=== PATIENT | male | born 1950 | race Caucasian/White ===

== ENCOUNTER 2020-04-06 16:29 | Outpatient (RCR) | payer MEDICARE, SELFPAY | END 2020-04-06 23:59 | LOC: IMMUN 16:29 | PROVIDERS: PCP Family Medicine; Visit Provider Family Medicine | DX: Z23 Encounter for immunization (principal) | CPT/HCPCS: 0011A; 0012A ==

== ENCOUNTER → 2020-12-07 15:35 | Outpatient (CLI) | payer MEDICARE, SELFPAY ==
--- NOTE | 2020-12-07 15:38 | CT_ITS ---
STUDY: CT RIGHT LOWER EXTREMITY WITHOUT CONTRAST REASON FOR EXAM: Right knee osteoarthritis, preoperative planning. TECHNIQUE: Transaxial CT imaging of the lower extremity was performed. Coronal and sagittal images were reformatted. Individualized dose optimization techniques were used for this CT. COMPARISON: None. FINDINGS: Knee: There are marginal osteophytes, subchondral eburnation and severe joint space narrowing of the medial femorotibial compartment (coronal reconstruction 30). There are marginal osteophytes with preservation of joint space of the lateral femorotibial compartment. There are marginal osteophytes and joint space narrowing of the lateral aspect of the patellofemoral compartment (axial image 274). Normal proximal tibiofibular articulation. There is a small joint effusion. The quadriceps tendon is grossly normal. The patellar tendon is grossly normal. Normal Hoffa''s fat pad. There is a ganglion cyst adjacent to the origin of the medial gastrocnemius (axial image 225). There is mild vascular calcification. Hip: There is mild joint space narrowing of the posterior aspect of the right hip joint (axial image 25) and subchondral cystic change of the lateral acetabulum. There is a herniation pit in the lateral aspect of the femoral neck (coronal reconstruction 41). Ankle: Normal tibiotalar, posterior subtalar, talonavicular and calcaneocuboid articulations. There is a plantar calcaneal enthesophyte. CT/Extremity Lower without Contra IMPRESSION: Right knee osteoarthritis. Electronically Signed: Jose Enrique Alexander MD at 14:52 EDT Tel , Service support ,
== END ==
PROVIDERS: PCP Family Medicine; Referring Provider Physician Assistant; Visit Provider Physician Assistant
DX: M17.11 Unilateral primary osteoarthritis, right knee (principal)
CPT/HCPCS: 73700

== ENCOUNTER → 2020-12-23 13:09 | Outpatient (CLI) | payer MEDICARE, SELFPAY ==
--- NOTE | 2020-12-23 14:04 | EKG12_ITS ---
Test Reason : PRE OP Blood Pressure : / mmHG Vent. Rate : 086 BPM Atrial Rate : 086 BPM P-R Int : 170 ms QRS Dur : 078 ms QT Int : 342 ms P-R-T Axes : 083 069 081 degrees QTc Int : 409 ms Normal sinus rhythm Normal ECG Confirmed by RESHMA CAICEDO, NICK ([id number]), movie editor HUSSAIN MADERA ([id number]) on 12/24/2020 9:25:25 AM Referred By: Winston Boswell Confirmed By:NICK JUSTICE MD
[2020-12-23 14:49] LABS: Hematocrit 49.1 % (40-54); Mean Corp Hgb Conc 32.6 g/dL (32-36); Mean Corpuscular Hgb 30.5 pg (27.0-32.0); Mean Corpuscular Volume 93.7 fL (80-94); Mean Platelet Vol. 9.3 fl (6.2-12.0); Platelet Count 270 K/mm3 (150-450); RBC Distribution Width CV 12.7 % (11.6-14.6); RBC Distribution Width SD 43.9 fl (35.1-43.9); Red Blood Count 5.24 M/mm3 (4.6-6.2); White Blood Count 7.2 K/mm3 (4.4-11.0)
[2020-12-23 15:21] LABS: Anion Gap 4 (5-15); BUN 12 mg/dL (7-18); BUN/Creat Ratio 12.7 RATIO (10-20); Calcium,Total 9.4 mg/dL (8.5-10.1); Chloride 108 mmol/L (98-107); Creatinine, Serum 0.95 mg/dL (0.70-1.30); EST Glomerular Filtration Rate 83 mL/min (>60); Est Glom Filt Rate - Afr Amer 101 mL/min (>60); Glucose 101 mg/dL (74-106); Potassium 3.9 mmol/L (3.5-5.1); Sodium Level 140 mmol/L (136-145)
[2020-12-23 15:37] LABS: Hemoglobin A1c 5.5 % (3.8-5.6)
== END ==
PROVIDERS: PCP Family Medicine; Referring Provider Physician Assistant; Visit Provider Physician Assistant
DX: Z01.818 Encounter for other preprocedural examination (principal); Z01.810 Encounter for preprocedural cardiovascular examination
CPT/HCPCS: 36415; 80048; 83036; 85027; 93005

== ENCOUNTER → 2021-01-06 | Outpatient (CLI) | payer MEDICARE, SELFPAY ==
--- NOTE | 2021-01-06 | KNEE_PTH ---
PATIENT: RIZWAN SANABRIA [facility] U[facility][id number] AGE/SX: 70/M ROOM: RE01/06/[address]: Dr. Jono Lemon DO : 1950 BED: DIS: 01/06/2021 SPEC #: [id number] RECD: 01/07/21 08:57 STATUS: MICHELA REQ #: [id number] SARINA: 01/06/21 00:[address]: Jono Lemon DEPT: SURGICAL PATHOLOGY RECD BY: Dinh Mccracken ENTERED: 01/07/21 08:58 SP TYPE: TOTAL KNEE OTHR DR: Dr. Zane Blanc III, MD [facility] Tissues: Knee, NOS Procedures: Decalcification bone/plaque Surgery Specimen Level IV HEADER OPERATION: Robotic assisted right total knee arthroplasty PRE-OP DIAGNOSIS: Osteoarthritis of knee TISSUE SUBMITTED: Bone and soft tissue right knee MICROSCOPIC DIAGNOSIS Bone and tissue of right knee, total knee resection: Severe degenerative joint disease. Mild synovial hyperplasia. AM:amisha 01/11/2021 MICROSCOPIC DESCRIPTION Slides are reviewed. GROSS DESCRIPTION Received is one container designated bone and soft tissue right knee. The specimen consists of multiple fragments of morales-yellow bone measuring in aggregate 12 x 10 x 4 cm. Also in the specimen container are multiple fragments of yellow-white soft tissue measuring in aggregate 11 x 7 x 3.5 cm. A number of bony fragments contain articular surfaces consistent with tibial plateau and femoral condyle and displaying prominent osteophyte formation, eburnation, and bone erosion. Meat Supervisor sections are submitted in two cassettes as follows: 1 - soft tissue, 2 - bone after decalcification. / SJ:amisha 01/07/21 TC:5 [facility]: [id number], [id number]
== END | disposition home or self-care (01) ==
PROVIDERS: PCP Family Medicine; Referring Provider Orthopaedic Surgery; Visit Provider Orthopaedic Surgery
DX: M17.11 Unilateral primary osteoarthritis, right knee (principal)
CPT/HCPCS: 88305; 88311

== ENCOUNTER 2021-01-07 21:26 | Emergency (ER) | payer MEDICARE, SELFPAY ==
[2021-01-07 21:28] VITALS: BP 142/95; PULSE 106; RESP 18; TEMP 36.4; O2SAT 94; BMI 29.2
[2021-01-07 22:04] LABS: Bacteria 0 SEEN /hpf (None Seen); Mucous, Urine 0 SEEN /hpf (<or=2+); Squamous Epithelial Cells - UA 0 SEEN /hpf (0-5)
--- NOTE | 2021-01-07 22:05 | EDS_ITS ---
HPI History of Present Illness Chief Complaint: Complaint Detail of Chief Complaint: Unable to urinate Informant: patient and spouse/S.O. Pain Onset: Today Timing: Continuous Current Severity: Mild Maximum Severity: Mild Narrative Narrative: 70-year-old male had a recent right knee surgery done with orthopedics yesterday. Had to be straight cathed after the surgery. He has a history of enlarged prostate and has seen urology in the past. Today's only had very minimal amount of urine. Denies any other symptoms. He has never had any urologic surgeries. Prior similar symptoms: Yes Recent Illness/Hospitalization: No PFSH PFSH Home Medications tamsulosin [Flomax] 0.4 mg PO DAILY #30 cap 01/07/21 [Rx Last Taken Unknown] Allergy/AdvReac Type Severity Reaction Status Date / Time No Known Allergies Allergy Verified 01/07/21 21:27 Surgical History Status post right knee replacement Social History Smoking Status: Current every day smoker tobacco type: cigarettes ROS ROS ED ROS Narrative Urinary retention. Review of Systems ROS Unobtainable: Denies due to encephalopathy Constitutional Constitutional ED: Denies fever(s) Eyes Eyes: Denies change in vision ENT ENT ED: Denies ear pain Cardiovascular Cardiovascular: Denies chest pain Respiratory/Chest Respiratory/Chest: Denies dyspnea Gastrointestinal Gastrointestinal: Denies abdominal pain Genitourinary Genitourinary ED: Reports urinary frequency; Denies dysuria or hematuria Musculoskeletal Musculoskeletal: Denies myalgias Integumentary Denies rash Neurologic Neurologic: Denies headache(s) Psychiatric Psychiatric: Denies depression Endocrine Endocrinology: Denies polyuria Hematologic/Lymphatic Hematologic/Lymphatic: Denies easy bruising Allergic/Immunologic Allergic/Immunologic ED: Denies urticaria EXAM Physical Exam Narrative Exam Narrative: 70-year-old male no acute distress vital signs stable afebrile. HEENT exam unremarkable. Neck nontender. Lungs clear to auscultation. Heart regular rhythm no murmur. Abdomen soft nondistended normal bowel sounds no peritoneal signs. Bladder feels distended and full. External exam unremarkable circumcised male. Moving all 4 extremities. Status post right knee replacement. Neurologically is awake and alert with no focal motor deficits. Const Vital Signs: 01/07/21 21:28 Temperature 97.6 F L Temperature Source Temporal Pulse Rate 106 H Respiratory Rate 18 Blood Pressure 142/95 H Blood Pressure Mean 110 Pulse Ox 94 Oxygen Delivery Method Room Air Positive well nourished and well developed; Negative for obese, cachectic, contractures or unkempt General Appearance ED: well developed and NAD; Negative for unkempt, cachectic, contractures or pallor Nutritional Appearance: Negative for cachectic or obese HEENT Reports moist mucous membranes normocephalic and atraumatic Eyes PERRL and EOMs intact bilaterally Neck no lymphadenopathy, supple and no JVD General: Negative for tenderness Resp normal respiratory effort and clear to auscultation bilaterally Auscultation: Negative for rales, rhonchi or wheezes Cardio regular rate, regular rhythm, S1 normal heart sound, S2 normal heart sound and no murmurs GI non-tender; Negative for non-distended GI Narrative: Distended bladder. Auscultation: normoactive bowel sounds Palpation: soft Penis: normal penis and circumcised Extremity normal to inspection Extremity Narrative: Status post right knee replacement. Neuro oriented x3 Sensorium / Orientation: alert, oriented to person, oriented to place and oriented to time Psych mental status grossly normal Appearance: Negative for unkempt Mood & Affect: Negative for depressed or tearful Skin General Skin Exam: Negative for jaundice or pallor Lesions: no lesions Rashes: no rashes MDM MDM MDM Narrative Medical decision making narrative: Gentleman postop urinary retention with a h istory of BPH. Gupta catheter was placed and is put out 1100 cc of clear yellow urine. No blood. He will be discharged to home with the Gupta in place. Urinalysis will be sent. He will follow up with urology and be started on Flomax. Discharge Plan Triage Chief Complaint: Complaint ED Provider: Amanuel Perez Dx/Rx/DC Orders Clinical Impression: Acute urinary retention, Benign prostatic hyperplasia Instructions: ED BPH (Enlarged Prostate), ED Urinary Retention, Male Prescriptions: New tamsulosin [Flomax] 0.4 mg capsule 0.4 mg PO DAILY Qty: 30 RF: 0 Primary Care Provider: Len Roca Referrals: Chaparro Hua MD [STAFF PHYSICIAN] - As soon as possible Len Roca PA [Primary Care Provider] - Activity Restrictions/Additional Instructions: Follow-up with the urologist as Empty the Gupta catheter whenever half for more. Start the Flomax. Disposition Disposition: Home, Self Care
[2021-01-07 22:37] LABS: Color, Urine Yellow (Yellow); Glucose, Dipstick Normal (Normal); Ketone-Dipstick Negative (Negative); Leukocyte Esterase-Dipstick 25 /ul (Negative); Nitrite-Dipstick Negative (Negative); Occult Blood-Urine 250 /ul (Negative); Protein-Dipstick Negative (Negative); Urine Bilirubin Dipstick Negative (Negative); Urine Clarity Clear (Clear); Urine Urobilinogen Normal (Normal)
[2021-01-07 22:49] LABS: Red Blood Cells-Urine 0-5 SEEN /hpf (0-5); White Blood Cells 0-5 SEEN /hpf (0-5)
== END 2021-01-07 22:27 | disposition home or self-care (01) ==
PROVIDERS: Emergency Provider Emergency Medicine; PCP Physician Assistant
DX: N40.1 Benign prostatic hyperplasia with lower urinary tract symptoms (principal); R33.8 Other retention of urine; Z79.899 Other long term (current) drug therapy; F17.210 Nicotine dependence, cigarettes, uncomplicated; Z96.651 Presence of right artificial knee joint
CPT/HCPCS: 51702; 81001; 99283

== ENCOUNTER 2021-02-04 07:54 | Day surgery (SDC) | payer MEDICARE, SELFPAY ==
[2021-02-04] VITALS (7 sets, daily range): BP systolic 109–130; BP diastolic 69–94; PULSE 82–95; RESP 16–20; TEMP 36.1–37.2; O2SAT 93–97; BMI 26.0
[2021-02-04] MEDS: Lactated Ringers 1,000 ML 100 ML IV (08:35)
--- NOTE | 2021-02-04 09:39 | PCM.HP.STD ---
HPI - General HPI Narrative RIZWAN SANABRIA, is a 70 M who presents for a TURP has develop retention of urine. PFSH Medical History Alcohol use COPD (chronic obstructive pulmonary disease) Indwelling urethral catheter present Prostate disease Smoker Wears contact lenses Wears hearing aid Home Medications tamsulosin [Flomax] 0.4 mg PO DAILY #30 cap 01/07/21 [Rx Last Taken Unknown] acetaminophen 1,000 mg PO TID PRN PRN 02/04/21 [History Last Taken Unknown] ciprofloxacin HCl [Cipro] 500 mg PO BID #14 tab 02/04/21 [Rx Last Taken Unknown] multivitamin 1 tab PO DAILY 02/04/21 [History Last Taken Unknown] tamsulosin [Flomax] 0.4 mg PO DAILY #10 cap 02/04/21 [Rx Last Taken Unknown] Allergy/AdvReac Type Severity Reaction Status Date / Time No Known Allergies Allergy Verified 01/07/21 21:27 Surgical History Status post right knee replacement Social History Smoking Status: Current every day smoker tobacco type: cigarettes Vital Signs Vital Signs Vital Signs: 02/04/21 08:23 Temperature 99.0 F Temperature Source Temporal Pulse Rate 87 Respiratory Rate 16 Respiratory Pattern Normal Blood Pressure 127/94 H Blood Pressure Mean 105 Blood Pressure Source Monitor Blood Pressure Position Sitting Blood Pressure Location Left Arm Pulse Ox 97 Oxygen Delivery Method Room Air Weight Weight: 80 kg Body Mass Index (BMI) 26.0
--- NOTE | 2021-02-04 09:40 | DCINST_ITS ---
Discharge Instructions Diet Discharge Diet: Light diet - advance as tolerated Activity Discharge Activity: Return to Normal Activity and May Not Drive (while taking narcotic pain medications.) Dressing / Incision Call your doctor if you observe: Fever of 101 or Higher Catheter: Gupta to leg bag and Gupta to large bag Drain: [place] Follow Up Care Please Follow Up With: Chaparro Hua MD When: Call [phone] for an appointment Test Results: Test results from this visit will be discussed in further detail at your follow-up appointment, if applicable. Discharge Plan Admission Primary Reason for Your Visit: TURP Attending Provider: Chaparro Hua Primary Care Provider: Len Roca Instructions Patient Instructions: TURP Home Recovery Discharge Orders/Prescriptions Prescriptions: New ciprofloxacin HCl [Cipro] 500 mg tablet 500 mg PO BID Qty: 14 RF: 0 tamsulosin [Flomax] 0.4 mg capsule 0.4 mg PO DAILY Qty: 10 RF: 0 Continued tamsulosin [Flomax] 0.4 mg capsule 0.4 mg PO DAILY Qty: 30 RF: 0 acetaminophen 500 mg Tablet 1,000 mg PO TID PRN PRN (Reason: Pain) RF: 0 multivitamin Tablet 1 tab PO DAILY RF: 0 Referrals / Follow Up: Chaparro Hua MD [STAFF PHYSICIAN] - Len Roca PA [Primary Care Provider] - Disposition Disposition (needs filled in before D/C Order can be placed): Home, Self Care
--- NOTE | 2021-02-04 10:05 | PROS_PTH ---
PATIENT: RIZWAN SANABRIA [place] [facility] [place][id number] AGE/SX: 70/M ROOM: RE02/04/[address]: Dr. Chaparro Hua MD : 1950 BED: DIS: 02/04/2021 SPEC #: [id number] RECD: 02/08/21 09:30 STATUS: MICHELA REChung #: [id number] SARINA: 02/04/21 10:[address]: Chaparro Hua DEPT: SURGICAL PATHOLOGY RECD BY: Lyly Bennett ENTERED: 02/08/21 09:30 SP TYPE: TURP OTHR DR: AMARILIS Og Tissues: Prostate, NOS Procedures: Surgery Specimen Level IV HEADER OPERATION: Cysto, TUR prostate, Olympus PRE-OP DIAGNOSIS: BPH with outlet obstruction TISSUE SUBMITTED: Prostate tissue MICROSCOPIC DIAGNOSIS Prostate tissue, TUR: Benign prostatic hyperplasia, glandular and stromal type. Chronic inflammation. SJ:amisha 02/09/2021 MICROSCOPIC DESCRIPTION Slides are reviewed. GROSS DESCRIPTION Received is one container labeled with the patient's name and designated prostate tissue. The specimen consists of multiple irregular fragments of pink-morales, rubbery, soft tissue that in aggregate weigh 20.7 gm and measure in aggregate 7 x 7 x 3 cm. Engraver Hand Soft Metals tissue is submitted in ten cassettes. / SJ:amisha 02/08/21 TC:5 CPT: 57574
--- NOTE | 2021-02-04 11:16 | PCM.OPRPT ---
Report of Operation Date of Procedure: 02/04/21 Pre-Operative Diagnosis: bph Post-Operative Diagnosis: same Surgery/Procedure Performed:: turp Description of Surgical Findings:: In the preoperative setting I discussed with the patient how the surgery would be done with expect afterwards. We discussed how a prostate resection is done and we discussed the risk of the surgery including, bleeding, infection, retrograde ejaculation, changes with ejaculation or intercourse,. We discussed the possibility that the resection of the prostate may not alleviate his urinary symptoms. We discussed the small risk of developing scar tissue along the urethral channel and strictures. We also discussed the chance of the prostate could grow back and he may need further surgery or treatment in the future for prostate problems. Patient was taken back to the operating room, timeout procedure was performed, he was identified and marked and placed on the operating room table. He underwent general anesthesia. He was placed in dorsolithotomy position. Penis and testicles were prepped and draped in usual sterile fashion. Went into the bladder using the visual obturator with a resectoscope. Once inside the bladder identified the right and left ureteral orifice. I then identified the prostate and the anatomy of the prostate. I marked out the area of the sphincter and the verumontanum was identified. I then proceeded with the prostate resection first resected the median lobe. And then resected the right lobe of the prostate. Then to resect the left lobe of the prostate. I then resected the apical tissue of the prostate. This was a complete resection of all obstructive tissue to improve voiding and relieve obstruction. I then made sure that there was no injury to the sphincter or the verumontanum was still intact. At the end of the resection all the chips were Ellik out of the bladder. I then identified the left and right ureteral orifice and these were confirmed to be in good position and effluxing and not injured. The resectoscope was removed, a 22 [place] catheter was placed. And the urine was fairly light pink color and draining normally. He was taken back to the PACU in good condition. Surgeon: graciela Type of Anesthesia: General Drains: 20 fr aguirre Admit VTE Documentation VTE Present on Admission: No VTE Mechan Device Prophylaxis: SCD's VTE Pharm Prophylaxis ordered?: No
== END 2021-02-04 13:16 | disposition home or self-care (01) ==
LOC: SDC 07:58 → AC 08:00
PROVIDERS: PCP Physician Assistant; Referring Provider Urology; Visit Provider Urology
PROC: (CPT 52601; principal; 2021-02-04 09:55)
DX: N40.1 Benign prostatic hyperplasia with lower urinary tract symptoms (principal); R33.8 Other retention of urine; J44.9 Chronic obstructive pulmonary disease, unspecified; Z79.899 Other long term (current) drug therapy; F17.210 Nicotine dependence, cigarettes, uncomplicated
CPT/HCPCS: 52601; 88305; J7120

== ENCOUNTER 2024-04-25 08:19 | Emergency (ER) | payer MEDICARE, SELFPAY ==
[2024-04-25] VITALS (17 sets, daily range): BP systolic 113–225; BP diastolic 78–152; PULSE 78–110; RESP 14–144; TEMP 36.1–36.3; O2SAT 90–100; BMI 33.7
--- NOTE | 2024-04-25 08:19 | ED.RN ---
per dr. villatoro do NOT call [facility] at this time.
[2024-04-25] MEDS: Etomidate 20 MG/10 ML Vial IV (08:23)
[2024-04-25] MEDS: Succinylcholine Chloride 200 MG/10 ML SYRINGE 100 MG IV (08:24)
--- NOTE | 2024-04-25 08:27 | CT_ITS ---
EXAM: CT Cervical Spine Without Intravenous Contrast CLINICAL INDICATION: FALL ?NECK TRAUMA TECHNIQUE: Axial computed tomography images of the cervical spine without intravenous contrast. This CT exam was performed using one or more of the following dose reduction techniques: automated exposure control, adjustment of the mA and/or kV according to patient size, and/or use of iterative reconstruction technique. COMPARISON: No relevant prior studies available. FINDINGS: ARTIFACTS: Suboptimal exam secondary to significant motion artifacts. No gross fracture. VERTEBRAE: See above. DISCS/SPINAL CANAL/NEURAL FORAMINA: No acute findings. No significant spinal canal stenosis. SOFT TISSUES: Unremarkable. CT/Spine Cervical without Contras IMPRESSION: Suboptimal exam secondary to significant motion artifacts. No gross fracture. Reading Location: [facility]
--- NOTE | 2024-04-25 08:27 | CT_ITS ---
EXAM: CT Head Without Intravenous Contrast CLINICAL INDICATION: AMS, CODE STROKE, RIGHT SIDED WEAKNESS TECHNIQUE: Axial computed tomography images of the head/brain without intravenous contrast. This CT exam was performed using one or more of the following dose reduction techniques: automated exposure control, adjustment of the mA and/or kV according to patient size, and/or use of iterative reconstruction technique. COMPARISON: No relevant prior studies available. FINDINGS: ARTIFACTS: Suboptimal exam secondary to motion artifacts. BRAIN AND EXTRA-AXIAL SPACES: Acute intracranial hemorrhage extending from the left thalamus to the midbrain and devin. No obvious hydrocephalus or herniation. However, evaluation is limited by motion artifact. BONES/JOINTS: Unremarkable. No acute fracture. SOFT TISSUES: Unremarkable. SINUSES: Unremarkable as visualized. No acute sinusitis. MASTOID AIR CELLS: Unremarkable as visualized. No mastoid effusion. CT/STROKE Brain/Head without Cont IMPRESSION: 1. Acute intracranial hemorrhage extending from the left thalamus to the midbr ain and devin. 2. Suboptimal exam secondary to motion artifacts. Findings were discussed with Dr. Klein by phone on 04/25/2024 at 0910 hours. Reading [facility]
--- NOTE | 2024-04-25 08:29 | EKG12_ITS ---
Test Reason : UNRESPONSIVE Blood Pressure : */* mmHG Vent. Rate : 104 BPM Atrial Rate : 104 BPM P-R Int : 178 ms QRS Dur : 92 ms QT Int : 312 ms P-R-T Axes : 70 62 50 degrees QTcB Int : 410 ms Poor data quality, interpretation may be adversely affected Sinus tachycardia Nonspecific ST abnormality Abnormal ECG Confirmed by JASWANT CAICEDO, KYLE ([id number]), restaurant expeditor ZACH ROSALES ([id number]) on 04/26/2024 7:59:36 AM Referred By: Confirmed By: KYLE MICHAUD MD
--- NOTE | 2024-04-25 08:30 | EDS_ITS ---
HPI History of Present Illness Chief Complaint: Unresponsive [facility] Medical History Wears hearing aid Wears contact lenses Alcohol use Prostate disease Indwelling urethral catheter present Smoker COPD (chronic obstructive pulmonary disease) Home Medications ?Medication ?Instructions ?Recorded ?Last Taken ?Type tamsulosin 0.4 mg capsule (Flomax) 0.4 mg PO DAILY #30 caps 01/07/21 Unknown Rx acetaminophen 500 mg tablet 1,000 mg PO TID PRN PRN Pa in 02/04/21 Unknown History ciprofloxacin HCl 500 mg tablet 500 mg PO BID #14 tabs 02/04/21 Unknown Rx (Cipro) multivitamin 1 tab PO DAILY 02/04/21 Unkn own History tamsulosin 0.4 mg capsule (Flomax) 0.4 mg PO DAILY #10 caps 02/04/21 Unknown Rx Allergy/AdvReac Type Severity Reaction Status Date / Time No Known Allergies Allergy Verified 04/25/24 08:36 Surgical History Status post right knee replacement Social History Smoking Status: Current every day smoker tobacco type: cigarettes EXAM Physical Exam Const Vital Signs: 04/25/24 08:22 04/25/24 08:29 Temperature 97.4 F L Temperature Source Axillary Pulse Rate 109 H 110 H Respiratory Rate 20 H 18 Blood Pressure 167/114 H 214/141 H Blood Pressure Mean 131 165 Pulse Ox 90 100 Oxygen Delivery Method Room Air Ambu-Bag MDM MDM MDM Narrative Medical decision making narrative: HISTORY OF PRESENT ILLNESS: 74 M here with concern for acute stroke. Per EMS his last known well was 10 PM on 04/24/2024. They state found him on the ground confused. History of COPD per EMS no blood thinners. EMS notes there is sign of trauma to the patient's left eyebrow. They note he had right sided flaccid weakness. He presented as a code stroke. Patient did not provide lab history secondary to change in mental status REVIEW OF SYSTEMS: Cannot obtain a reliable review of system secondary to altered mental status PHYSICAL EXAM: Nursing triage notes reviewed, Vital signs reviewed Constitutional: please see mdm HENT: MMM Eyes: Sluggishly reactive Neck: No stridor, no JVD, full neck ROM Lungs: Clear to auscultation, sonorous respirations, not protecting airway Heart: Regular rate and rhythm, No murmurs, No rubs and No gallops, 2+ distal pulses (radial, femoral, posterior tibial) in all extremities Abdomen: Soft, : Normal-appearing genitalia Extremities: No edema Neuro: Altered, somnolent, localizes to pain, does not follow commands Skin: No rash or lesions noted MEDICAL DECISION MAKING: Chief Complaint: Altered mental status/stroke team External records reviewed: [] Factors affecting care: none [] Social determinants of health: none [] History obtained from others: none [] Consults: none [] MDM Narrative: The patient was initially hypertensive with a blood pressure 167/114, tachycardic saturating 90% on room air. He initially was a code stroke and upon initial evaluation in the hallway the patient was noted to have sonorous respirations, he would not respond to sternal rub. GCS of 8. Given concern for mental status and sign of trauma to the left eyebrow I opted to control the patient's airway initially. Patient intubated. Please see below procedure note. After intubation stroke team process was continued. Of note his last known well was at 10 PM on 04/24/2024 greater than 4 and half hours prior to arrival he is not a TNK candidate. He is potentially still a thrombectomy candidate although my suspicion for ICH was very high initially. I considered the following differential diagnosis: ICH, CVA, TIA, seizure, CO2 narcosis ALL IMAGES (IF OBTAINED) HAVE BEEN PERSONALLY REVIEWED AND INTERPRETED BY MYSELF. [] The procedure was performed by myself. Indications: Altered mental status, not protecting airway Procedure Description: Patient was preoxygenated with nasal cannula oxygen, he is in a supine position, video laryngoscopy used, 8 oh blade was seen passing th rough cords on first attempt. No complications Post-Procedure Assessment: Tracheal intubation was confirmed with breath sounds auscultated equally bilaterally; appropriate color change with end tidal CO2 detector and waveform capnography. The patient tolerated the procedure well with no immediate complications. The patient and/or family, caregivers express understanding. The patient and/or family, caregivers agrees with the plan. Shared decision making: I will have a discussion with the patient and or visitors regarding risk/benefits of further testing or admission. They will be made aware of of the risk/benefits inherent in this decision they will be given the opportunity to voice understanding. Total critical care time today provided was at least 0 [] minutes. This excludes separately billable procedures. Critical care time (if documented) is secondary to the patient having high probability of clinically significant/life threatening deterioration in the patient's condition which required my urgent intervention. Impression: [] Dispo: [] This note was generated with [employer] dictation software. It may contain incorrect words, spelling, and punctuation that were not noted in review of the chart prior to signing. Discharge Plan Triage Chief Complaint: Unresponsive ED Provider: Srikanth Klein Dx/Rx/DC Orders Prescriptions: No Action tamsulosin [Flomax] 0.4 mg capsule 0.4 mg PO DAILY Qty: 30 0RF acetaminophen 500 mg Tablet 1,000 mg PO TID PRN PRN (Reason: Pain) multivitamin Tablet 1 tab PO DAILY ciprofloxacin HCl [Cipro] 500 mg tablet 500 mg PO BID Qty: 14 0RF tamsulosin [Flomax] 0.4 mg capsule 0.4 mg PO DAILY Qty: 10 0RF Primary Care Provider: Len Roca Referrals: Len Roca PA [Primary Care Provider] - Print Language: Portuguese
--- NOTE | 2024-04-25 08:30 | EX.ED.DYSGE1 ---
HPI History of Present Illness Chief Complaint: Unresponsive [facility] Medical History Wears hearing aid Wears contact lenses Alcohol use Prostate disease Indwelling urethral catheter present Smoker COPD (chronic obstructive pulmonary disease) Home Medications ?Medication ?Instructions ?Recorded ?Last Taken ?Type tamsulosin 0.4 mg capsule (Flomax) 0.4 mg PO DAILY #30 caps 01/07/21 Unknown Rx acetaminophen 500 mg tablet 1,000 mg PO TID PRN PRN Pain 02/04/21 Unknown History ciprofloxacin HCl 500 mg tablet 500 mg PO BID #14 tabs 02/04/21 Unknown Rx (Cipro) multivitamin 1 tab PO DAILY 02/04/21 Unknown History tamsulosin 0.4 mg capsule (Flomax) 0.4 mg PO DAILY #10 caps 02/04/21 Unknown Rx Allergy/AdvReac Type Severity Reaction Status Date / Time No Known Allergies Allergy Verified 04/25/24 08:36 Surgical History Status post right knee replacement Social History Smoking Status: Current every day smoker tobacco type: cigarettes EXAM Physical Exam Const Vital Signs: 04/25/24 08:22 04/25/24 08:22 04/25/24 08:25 Temperature 97.4 F L Temperature Source Axillary Pulse Rate 109 H 94 90 Respiratory Rate 20 H 28 H Respiratory Effort Respiratory Pattern Normal Blood Pressure 167/114 H 167/114 H Blood Pressure Mean 131 131 Pulse Ox 90 91 98 Oxygen Delivery Method Room Air Fraction of Inspired Oxygen (FIO2) 100 04/25/24 08:29 04/25/24 08:30 04/25/24 08:30 Temperature Temperature Source Pulse Rate 110 H 80 Respiratory Rate 18 144 H Respiratory Effort Mechanically Ventilated Respiratory Pattern Blood Pressure 214/141 H 225/121 H Blood Pressure Mean 165 155 Pulse Ox 100 99 Oxygen Delivery Method Ambu-Bag Ambu-Bag Fraction of Inspired Oxygen (FIO2) 04/25/24 08:46 04/25/24 08:56 04/25/24 09:05 Temperature Temperature Source Pulse Rate 102 H 103 H Respiratory Rate 28 H 25 H Respiratory Effort Respiratory Pattern Tachypnea Blood Pressure 217/152 H 150/99 H Blood Pressure Mean 173 116 Pulse Ox 98 97 Oxygen Delivery Method Mechanical Ventilator Fraction of Inspired Oxygen (FIO2) 70 04/25/24 09:13 04/25/24 09:15 04/25/24 09:18 Temperature Temperature Source Pulse Rate 80 82 81 Respiratory Rate 22 H 22 H 21 H Respiratory Effort Respiratory Pattern Blood Pressure 132/91 H 126/90 H 125/91 H Blood Pressure Mean 104 102 102 Pulse Ox 96 Oxygen Delivery Method Mechanical Ventilator Fraction of Inspired Oxygen (FIO2) 04/25/24 09:21 04/25/24 09:26 04/25/24 09:26 Temperature Temperature Source Pulse Rate 83 78 Respiratory Rate 21 H 20 H Respiratory Effort Respiratory Pattern Blood Pressure 123/85 H 116/84 H 116/84 H Blood Pressure Mean 97 94 94 Pulse Ox 95 94 Oxygen Delivery Method Mechanical Ventilator Mechanical Ventilator Fraction of Inspired Oxygen (FIO2) 04/25/24 09:33 04/25/24 09:34 Temperature Temperature Source Pulse Rate 80 81 Respiratory Rate 20 H 20 H Respiratory Effort Respiratory Pattern Blood Pressure 113/79 115/81 H Blood Pressure Mean 90 92 Pulse Ox 94 93 Oxygen Delivery Method Mechanical Ventilator Mechanical Ventilator Fraction of Inspired Oxygen (FIO2) MDM MDM MDM Narrative Medical decision making narrative: HISTORY OF PRESENT ILLNESS: 74 M here with concern for acute stroke. Per EMS his last known well was 10 PM on 04/24/2024. They state found him on the ground confused. History of COPD per EMS no blood thinners. EMS notes there is sign of trauma to the patient's left eyebrow. They note he had right sided flaccid weakness. He presented as a code stroke. Patient did not provide lab history secondary to change in mental status REVIEW OF SYSTEMS: Cannot obtain a reliable review of system secondary to altered mental status PHYSICAL EXAM: Nursing triage notes reviewed, Vital signs reviewed Constitutional: please see mdm HENT: MMM Eyes: Sluggishly reactive Neck: No stridor, no JVD, full neck ROM Lungs: Clear to auscultation, sonorous respirations, not protecting airway Heart: Regular rate and rhythm, No murmurs, No rubs and No gallops, 2+ distal pulses (radial, femoral, posterior tibial) in all extremities Abdomen: Soft, : Normal-appearing genitalia Extremities: No edema Neuro: Altered, somnolent, localizes to pain, does not follow commands Skin: No rash or lesions noted MEDICAL DECISION MAKING: Chief Complaint: Altered mental status/stroke team External records reviewed: Reviewed prior ED record from 2020 Factors affecting care: COPD Social determinants of health: none History obtained from others: EMS, Consults: [facility] Trauma center, [facility] ED physician (Dr. Santana). MDM Narrative: The patient was initially hypertensive with a blood pressure 167/114, tachycardic saturating 90% on room air. He initially was a code stroke and upon initial evaluation in the hallway the patient was noted to have sonorous respirations, he would not respond to sternal rub. GCS of 8. Given concern for altered mental status and sign of trauma to the left eyebrow I opted to control the patient's airway initially. Patient was promtly intubated. Please see below procedure note. After intubation stroke team process was continued. Of note his last known well was at 10 PM on 04/24/2024 greater than 4.5 prior to arrival he is not a TNK candidate. He is potentially still a thrombectomy candidate although my suspicion for ICH was very high initially. CT by my read showed ICH. Given sign of ICH concern for traumatic etiology rather than LVO. Thrombectomy would likely not be beneficial. I considered the following differential diagnosis: ICH, CVA, TIA, seizure, CO2 narcosis ALL IMAGES (IF OBTAINED) HAVE BEEN PERSONALLY REVIEWED AND INTERPRETED BY MYSELF. CT scan of the head was read reviewed myself showed large intraparenchymal hemorrhage. Radiologist agreed my interpretation and added that is in the devin and midbrain Given sign of ICH, altered mental status steps were made to control the patient's blood pressure. Head of bed was raised to 30 degrees. He was given propofol and fentanyl for sedation. Was given labetalol and nicardipine for blood pressure control. He was given mannitol, 3% normal saline for osmotic control. He was given Keppra for seizure prophylaxis. Chest x-ray was read and reviewed person by myself showed appropriate ET tube and OG placement CT scan of the cervical spine is pending ABG showed evidence of respiratory acidosis with a pH of 7.2 and a CO2 of 60 CBC without leukocytosis, severe anemia, no thrombocytopenia. Urinalysis shows no evidence of urinary inflammation suggestive of UTI Additional labs including serum alcohol, urine drug screen pending. Given patient's extremis and concern for traumatic or spontaneous ICH and need for trauma center and/or neurosurgical evaluation the decision was made to transfer the patient to the nearest trauma center by air transport. Discussed with Eddi Santana who agreed to accept the patient in transfer. Procedure: Intubation The procedure was performed by myself. Indications: Altered mental status, not protecting airway Procedure Description: Patient was preoxygenated with nasal cannula oxygen, he is in a supine position, video laryngoscopy used, Mac 4 blade used. 8.0 ETT was seen passing through cords on first attempt. No complications. Post-Procedure Assessment: Tracheal intubation was confirmed with breath sounds auscultated equally bilaterally; appropriate color change with end tidal CO2 detector and waveform capnography. The patient tolerated the procedure well with no immediate complications. The patient and/or family, caregivers express understanding. The patient and/or family, caregivers agrees with the plan. Shared decision making: I will have a discussion with the patient and or visitors regarding risk/benefits of further testing or admission. They will be made aware of of the risk/benefits inherent in this decision they will be given the opportunity to voice understanding. Total critical care time today provided was at least 60 minutes. This excludes separately billable procedures. Critical care time (if documented) is secondary to the patient having high probability of clinically significant/life threatening deterioration in the patient's condition which required my urgent intervention. Impression: 1. Altered mental status 2. Acute Intracranial hemorrhage Dispo: Transfer to nearest trauma center This note was generated with [employer] dictation software. It may contain incorrect words, spelling, and punctuation that were not noted in review of the chart prior to signing. Lab Data Labs: Laboratory Results - last 24 hr 04/25/24 04/25/24 08:15 09:00 WBC 6.5 RBC 5.42 Hgb 16.7 H Hct 49.3 MCV 91.0 MCH 30.8 MCHC 33.9 RDW Std Deviation 42.1 RDW Coeff of Ulises 12.7 Plt Count 283 MPV 9.4 Sodium 138 Potassium 4.3 Chloride 103 Carbon Dioxide 21.9 Anion Gap 13 BUN 14 Creatinine 1.00 Estim Creat Clear Calc 75.67 Est GFR (MDRD) Non-Af 79 BUN/Creatinine Ratio 13.6 Glucose 178 H Calcium 9.4 Total Bilirubin 0.56 AST 24 ALT 18 Alkaline Phosphatase 108 Total Protein 7.3 Albumin 4.2 Globulin 3.1 Albumin/Globulin Ratio 1.4 Lipase 32 Urine Color Yellow Urine Clarity Clear Urine pH 6.0 Ur Specific [place] 1.015 Urine Protein 100 H Urine Glucose (UA) 50 H Urine Ketones Negative Urine Occult Blood 150 H Urine Nitrite Negative Urine Bilirubin Negative Urine Urobilinogen Normal Ur Leukocyte Esterase Negative Urine RBC 5-10 SEEN Urine WBC 0 SEEN Ur Squamous Epith Cells 0 SEEN Urine Bacteria 0 SEEN Urine Mucus 0 SEEN ABG Data ABG results: ABG 04/25/24 09:09 Specimen Type ART Sample Site R Radial pH 7.25 L Bicarbonate Actual 26.5 H Total CO2 28 Base Excess -1 O2 Saturation 99 O2 % 70.0 ABG pCO2 60.3 H ABG pO2 165 H Dar Test Positive Respiration Rate 20 O2 Delivery Device Adult Vent Vent Mode AC Tidal Volume 450.0 POC PEEP 5 Radiography Diagnostic Testing: Clinical Impression(s) from Imaging Studies Brain CT 04/25/24 08:27 IMPRESSION: 1. Acute intracranial hemorrhage extending from the left thalamus to the midbrain and devin. 2. Suboptimal exam secondary to motion artifacts. Findings were discussed with Dr. Klein by phone on 04/25/2024 at 0910 hours. Reading Location: [facility] Cervical Spine CT 04/25/24 08:27 IMPRESSION: Suboptimal exam secondary to significant motion artifacts. No gross fracture. Reading Location: [facility] Chest X-Ray 04/25/24 08:50 IMPRESSION: Pulmonary congestion and edema. Pneumonia cannot be excluded. Reading Location: [facility] Discharge Plan Triage Chief Complaint: Unresponsive ED Provider: Srikanth Klein Dx/Rx/DC Orders Prescriptions: No Action tamsulosin [Flomax] 0.4 mg capsule 0.4 mg PO DAILY Qty: 30 0RF acetaminophen 500 mg Tablet 1,000 mg PO TID PRN PRN (Reason: Pain) multivitamin Tablet 1 tab PO DAILY ciprofloxacin HCl [Cipro] 500 mg tablet 500 mg PO BID Qty: 14 0RF tamsulosin [Flomax] 0.4 mg capsule 0.4 mg PO DAILY Qty: 10 0RF Primary Care Provider: Care Physician,No Primary Referrals: Roca,M Kaushal PA, PA [Non-Staff] - Print Language: Maltese
[2024-04-25] MEDS: Propofol 10MG/Ml 1,000 MG/100 ML Bottle 6.2 MG CONT INF (08:32)
[2024-04-25] MEDS: fentaNYL 100 MCG/2 ML Ampul IV ×2 (08:37→08:58)
--- NOTE | 2024-04-25 08:39 | ED.RN ---
pt has hematoma lt eye brow. states she thinks he fell off the toilet and fell against the door.
--- NOTE | 2024-04-25 08:50 | RAD_ITS ---
EXAM: XR Chest, 1 View CLINICAL INDICATION: TUBE PLACEMENT TECHNIQUE: Frontal view of the chest. COMPARISON: No relevant prior studies available. FINDINGS: LUNGS AND PLEURAL SPACES: Pulmonary congestion and edema. Pneumonia cannot be excluded. No pneumothorax. HEART: Unremarkable. No cardiomegaly. MEDIASTINUM: Unremarkable. Normal mediastinal contour. BONES/JOINTS: Unremarkable. No acute fracture. TUBES, LINES AND DEVICES: The endotracheal tube (ETT) is in satisfactory position. Enteric tube tip in the stomach. RAD/Chest 1 View (Portable) IMPRESSION: Pulmonary congestion and edema. Pneumonia cannot be excluded. Reading [facility]
[2024-04-25 09:00] LABS: Hematocrit 49.3 % (40-54); Hemoglobin 16.7 g/dL (13.0-16.5); Mean Corp Hgb Conc 33.9 g/dL (32-36); Mean Corpuscular Hgb 30.8 pg (27.0-32.0); Mean Platelet Vol. 9.4 fl (6.2-12.0); Platelet Count 283 K/mm3 (150-450); RBC Distribution Width CV 12.7 % (11.6-14.6); RBC Distribution Width SD 42.1 fl (35.1-43.9); Red Blood Count 5.42 M/mm3 (4.6-6.2); White Blood Count 6.5 K/mm3 (4.4-11.0)
[2024-04-25] MEDS: fentaNYL drip 100 ML 5 MCG CONT INF (09:02)
[2024-04-25] MEDS: NICARdipine 25 MG in 0.9% Normal Saline (250mL Bag) 240 ML 50 MG CONT INF (09:02)
[2024-04-25] MEDS: Sodium Cl 3% 500 ML 50 ML IV (09:08)
[2024-04-25 09:11] LABS: Bacteria 0 SEEN /hpf (None Seen); Color, Urine Yellow (Yellow); Glucose, Dipstick 50 mg/dl (Normal); Ketone-Dipstick Negative (Negative); Leukocyte Esterase-Dipstick Negative /ul (Negative); Mucous, Urine 0 SEEN /hpf (<or=2+); Nitrite-Dipstick Negative (Negative); Occult Blood-Urine 150 /ul (Negative); Protein-Dipstick 100 mg/dl (Negative); Specific Gravity, Urine 1.015 (1.002-1.030); Squamous Epithelial Cells - UA 0 SEEN /hpf (0-5); Urine Bilirubin Dipstick Negative (Negative); Urine Clarity Clear (Clear); Urine Urobilinogen Normal (Normal); White Blood Cells 0 SEEN /hpf (0-5)
[2024-04-25] MEDS: levETIRAcetam IV 1,000 MG/100 ML BAG 400 MG IV (09:11)
[2024-04-25 09:13] LABS: Allen Test Positive; Base Excess -1 mmol/L (-2 to +2); Bicarbonate 26.5 mmol/L (22-26); Blood Gas Specimen Type ART; Mode AC; O2 Delivery Device Adult Vent; PEEP 5; PO2 165 mmHG (75-100); RR 20; SITE R Radial; SO2 99 % (95-99); Total Carbon Dioxide 28 mmol/L; pCO2 60.3 mmHg (35-45); pH 7.25 (7.35-7.45)
--- NOTE | 2024-04-25 09:16 | ED.RN ---
Shawna Jorge and [place] JORGE assisting with pt care.
[2024-04-25 09:18] LABS: Red Blood Cells-Urine 5-10 SEEN /hpf (0-5)
[2024-04-25] MEDS: Mannitol 50gm/250ml 50 GM in Premixed Bag 1 BAG IV (09:23)
[2024-04-25 09:29] LABS: ALB/GLOB Ratio 1.4 RATIO (0.9-2.4); AST(SGOT) 24 U/L (<=37); Alanine Aminotransfer ALT/SGPT 18 U/L (<=46); Albumin, Serum 4.2 g/dL (3.4-4.8); Alkaline Phosphatase 108 U/L (40-129); Anion Gap 13 (5-15); BUN 14 mg/dL (4-19); BUN/Creat Ratio 13.6 RATIO (10-20); Calcium,Total 9.4 mg/dL (7.6-11.0); Carbon Dioxide 21.9 mmol/L (21.0-32.0); Chloride 103 mmol/L (98-108); EST Glomerular Filtration Rate 79 (>60); Estimated Creatinine Clearance 75.67 ml/min (50-250); Globulin 3.1 g/dL (2.2-4.2); Glucose 178 mg/dL (70-99); Lipase 32 U/L (13-75); Potassium 4.3 mmol/L (3.3-5.1); Protein, Total 7.3 g/dL (5.9-8.4); Sodium Level 138 mmol/L (133-145); Total Bilirubin 0.56 mg/dL (0.00-1.30)
--- NOTE | 2024-04-25 09:31 | ED.RN ---
per dr. villatoro, pause Cardene
--- NOTE | 2024-04-25 09:36 | ED.RN ---
transport at bedside
--- NOTE | 2024-04-25 09:43 | ED.RN ---
transport preparing pt for transport
--- NOTE | 2024-04-25 09:55 | CM.ED ---
Social Work Reason for consult: stroke alert/support to family Requested by nursing staff for support to patient's who was present in the ED, without other support present. Patient unresponsive and intubated upon social work arrival to the ED. [place] from staff decision made to transfer patient, with [facility] as accepting facility, with life flight to transport. Introduced self to Kathryn, and role. Emotional support provided to the who shared events of the morning, as well as recent stressors in the family (such as Kathryn's mother just being placed in a SNF last week). Supportive listening provided. A [id number] arrived to the department, tearful, and supportive to the . Updated family as able, checked on intermittently until life flight arrived. Additional family, a nephew, arrived to the department to transport Kathryn to [place], and the [id number] stayed behind in [place] to assist with care of patient's 13 year old granddaughter (whom patient and Kathryn care for). No other services requested or indicated. Family expressed thanks for support. -YOLANDA Laureano
[2024-04-25 10:11] LABS: Troponin T High Sensitivity 8 ng/L (<=22)
[2024-04-25 10:28] LABS: CPK Total, Creatine Kinase 67 U/L (24-195); Triglycerides 125 mg/dL
== END 2024-04-25 09:55 | disposition short-term general hospital (02) ==
PROVIDERS: Emergency Provider Emergency Medicine; Visit Provider Emergency Medicine
DX: I62.9 Nontraumatic intracranial hemorrhage, unspecified (principal); J44.9 Chronic obstructive pulmonary disease, unspecified; R41.82 Altered mental status, unspecified; F17.210 Nicotine dependence, cigarettes, uncomplicated; Z96.651 Presence of right artificial knee joint
CPT/HCPCS: 43752; 31500; 31720; 36600; 70450; 71045; 72125; 80053; 81001; 82550; 82803; 83690; 84478; 84484; 85027; 93005; 94002; 96365; 96367; 96368; 96375; 99252; 99285; A4216; G0463